=== PATIENT | female | born 1950 | race Hispanic/Latino ===

== ENCOUNTER 2020-10-17 06:35 | Day surgery (SDC) | payer MEDICARE, OTHER ==
[2020-10-17 07:28] LABS: Basophils # (Auto) 0.1 K/mm3 (0.0-0.1); Eosinophils # (Auto) 0.3 K/mm3 (0.0-0.4); Eosinophils % (Auto) 4.8 % (0.0-4.3); Hematocrit 41.3 % (30.3-42.9); Hemoglobin 13.8 gm/dl (10.1-14.3); Lymphocytes # (Auto) 1.6 K/mm3 (1.2-5.4); Lymphocytes % (Auto) 23.5 % (13.4-35.0); Mean Corpuscular HGB Conc 33 % (30-34); Mean Corpuscular Volume 86 fl (79-97); Monocytes # (Auto) 0.7 K/mm3 (0.0-0.8); Monocytes % (Auto) 10.3 % (0.0-7.3); Platelet Count 295 K/mm3 (140-440); Red Blood Count 4.79 M/mm3 (3.65-5.03); Red Cell Distribution Width 13.4 % (13.2-15.2)
[2020-10-17 07:41] LABS: BUN/Creatinine Ratio 14; Blood Urea Nitrogen 11 mg/dL (7-17); Calcium 10.6 mg/dL (8.4-10.2); Hemolysis Index 7
[2020-10-17 07:43] LABS: INR 0.89 (0.87-1.13)
[2020-10-17 07:44] LABS: Partial Thromboplastin Time 34.1 Sec. (24.2-36.6)
[2020-10-17] MEDS ORDERED: SODIUM CHLORIDE 0.9% 500 ML 500 ML IV SCH (08:00)
[2020-10-17] MEDS ORDERED: HEPARIN 10,000 UNITS/10 ML VIAL ONE (08:03)
[2020-10-17] MEDS ORDERED: HEPARIN/NS 5000 UNIT/500ML 1,000 ML IR ONE (08:03)
--- NOTE | 2020-10-17 08:37 | Short Stay Summary ---
Short Stay Documentation Date of service: 10/17/20 - History Principal diagnosis: Peripheral vascular disease with claudication to bilateral lower extremitie Past Medical History: diabetes, hypertension, PVD Social history: no significant social history - Allergies and Medications Current Medications: Allergies codeine Allergy (Verified 10/17/20 07:02) Itching Penicillins Allergy (Verified 10/17/20 07:01) Swelling Sulfa (Sulfonamide Antibiotics) Allergy (Verified 10/17/20 07:01) Swelling Home Medications Medication Instructions Recorded Confirmed Last Taken Type Ascorbic Acid/Ascorbate Sodium 1 tab PO DAILY 10/17/20 10/17/20 10/12/20 History [Vit C-Natasha Hips 500 mg Chew Tb] 1 tab Benazepril HCl [Lotensin] 20 mg PO DAILY 10/17/20 10/17/20 10/17/20 05:00 Histo ry Vit D3-Vit K/Berberine/Hops 1 tab PO DAILY 10/17/20 10/17/20 10/12/20 History [Ostera Tablet] 1 Tab Vitamin B Complex [B Complex] 1 tab PO DAILY 10/17/20 10/17/20 10/12/20 History 1 tab hydroCHLOROthiazide 12.5 mg PO DAILY 10/17/20 10/17/20 10/17/20 05:00 History [Hydrochlorothiazide] metFORMIN [Glucophage] 500 mg PO DAILY 10/17/20 10/17/20 10/15/20 History 500 mg Active Medications Sodium Chloride (Nacl 0.9% 500 Ml) 500 mls @ 50 mls/hr IV DIRECT VIDAL Stop: 10/17/20 20:00 Last Admin: 10/17/20 08:14 Dose: 50 mls/hr Documented by: Clindamycin HCl (Cleocin 900 Mg/50 Ml) 900 mg in 50 mls @ 100 mls/hr IV PREOP NR; Protocol - Physical exam General appearance: no acute distress Integumentary: no rash, no growths HEENT: Atraumatic Lungs: Normal air movement Breasts: deferred Heart: Regular rate Gastrointestinal: normal Female Genitourinary: deferred Rectal Exam: deferred Extremities: no ischemia, no No edema Neurological: Normal gait, Normal speech - Brief post op/procedure progress note Date of procedure: 10/17/20 Pre-op diagnosis: Peripheral vascular disease with claudication Post-op diagnosis: same Procedure: Ultrasound and fluoroscopic guided placement of bilateral common iliac artery stents Anesthesia: local Surgeon: BARBIE MANCUSO Estimated blood loss: minimal Pathology: none Condition: stable - Disposition Condition at discharge: Good Disposition: [id number] TO HOME OR SELFCARE Short Stay Discharge Plan Activity: advance as tolerated Weight Bearing Status: Weight Bear as Tolerated Diet: regular Wound: keep clean and dry, per your surgeon's advice (Keep pressure dressings on until tomorrow morning) Follow up with: TOÑO PULLIAM MD [Primary Care Provider] - 7 Days
[2020-10-17] MEDS: fentaNYL 100 MCG/2 ML INJ ONE ×4 (08:59→10:05)
[2020-10-17] MEDS: MIDAZOLAM 2 MG/2 ML INJ ONE ×3 (09:00→09:36)
[2020-10-17] MEDS: LIDOCAINE (2%) 20 MG/1 ML VIAL 20 ML MDV INFILTRATI ONE ×4 (09:05→09:14)
--- NOTE | 2020-10-17 10:48 | Operative Report ---
Operative Report Operative Report: Exam: Ultrasound and fluoroscopic guided placement of kissing bilateral common iliac artery stents with extension into the aorta, intravascular ultrasound Clinical indication: Patient with a history of peripheral vascular disease with claudication and distal abdominal aorta stenosis as well as bilateral common iliac artery stenosis Date: 10/17/2020 Procedure: Following an explanation of the risks, benefits and alternatives; written informed consent was obtained. The patient was brought to the [facility] suite and placed in supine position on the examination table. Initial ultrasound evaluation of her bilateral groins demonstrated patent although diminutive common femoral arteries bilaterally. The patient's bilateral groins were prepped and draped in the usual sterile fashion. 1% lidocaine was used for anesthesia. Under ultrasound guidance, the right common femoral artery was cannulated with a 7 cm 21-gauge needle. A 0.018 guidewire was advanced centrally under fluoroscopy. The needle was removed and a microsheath placed. The 0.018 guidewire was exchanged for a 0.035 guidewire and the micro sheath exchanged for a 5 Pakistani vascular sheath. Access to the left common femoral artery was obtained in a similar fashion and an additional 5 Pakistani sheath placed in the left common femoral artery. An Omni Flush catheter was advanced over the guidewire through the right sheath. Together the catheter and guidewire were advanced to the distal abdominal aorta. Angiography was performed. This demonstrates mild aortic ectasia of the distal abdominal aorta just proximal to a significant stenosis in the distal abdominal aorta just proximal to the bifurcation. The origin of the inferior mesenteric artery as well as lumbar arteries was identified. There is bilateral common iliac artery stenosis. The origins of the internal iliac arteries were also identified. From the right sheath, the 5 Pakistani sheath was removed and an 8 Pakistani intravascular ultrasound fiber advanced over the guidewire to the distal abdominal aorta. Intravascular ultrasound was then performed in the abdominal aorta, right common iliac artery, right external iliac artery and right common femoral artery. This demonstrates a 70% stenosis within the distal abdominal aorta and a 70 to 80% stenosis within the mid common iliac artery on the right. The external iliac artery and common femoral artery are diminutive. Over the guidewires, the sheaths were upsized. On the left, the sheath was upsized to an 7 Pakistani sheath on the right, the sheath was upsized to an 8 Pakistani sheath. Additional angiography was performed following placement of the Omni Flush catheter through the left sheath for procedural mapping. An 8 mm x 59 mm Saffell VBX stent was advanced through the left sheath, an 8 mm x 79 mm Saffell VBX stent was advanced through the right sheath. The stents were deployed in kissing fashion from the distal abdominal aorta into bilateral common iliac arteries treating both the distal abdominal aortic lesion and both common iliac artery lesions. Within the proximal aspect of the stents, addit ional seating was performed using kissing 10 mm x 40 mm balloons insufflated to 3 rick for 30 seconds. The Omni Flush catheter was then advanced over the guidewire through the left sheath and completion angiography performed. This demonstrates no evidence of endoleak's. There were reduction of the stenoses in the distal abdominal aorta and bilateral common iliac artery with brisk flow from the distal abdominal aorta to the common femoral arteries bilaterally. The catheters, guidewires and sheaths were then removed and hemostasis achieved using manual compression. Sterile dressings were applied and then compression dressings were applied. The patient tolerated the procedure well. There were no immediate postprocedure complications. Conscious sedation was performed under the guidance of radiologic nursing. Continuous cardiopulmonary monitoring was utilized. Impression: 1) Angiography of the distal abdominal aorta, bilateral common iliac arteries, bilateral external iliac arteries and bilateral common femoral arteries demonstrating high-grade stenosis within the distal abdominal aorta as well as bilateral common iliac arteries. There is diminutive external and common femoral arteries bilaterally. 2) Intravascular ultrasound of the distal abdominal aorta, right common iliac artery, right external iliac artery and right common femoral artery. This demonstrates 70% stenosis within the distal abdominal aorta and 70 to 80% stenosis within the mid right common iliac artery. 3) Treatment of the distal abdominal aortic lesion as well as bilateral common iliac artery lesions using kissing 8 mm Saffell VBX stents. On the left, a 79 mm stent was placed, on the right, a 59 mm stent was placed. Post intervention imaging demonstrated reduction of all 3 stenoses with brisk flow from the distal aorta into the visualized portion of the common femoral arteries.
[2020-10-17] MEDS ORDERED: oxyCODONE /ACETAMINOPHEN 5-325MG TAB PO PRN (12:06)
[2020-10-17] MEDS ORDERED: CLOPIDOGREL 75 MG TAB PO ONE (13:06)
[2020-10-17] MEDS ORDERED: CLOPIDOGREL 75 MG TAB ONE (13:31)
[2020-10-17 14:37] VITALS: BP 118/52
== END 2020-10-17 15:05 | disposition home or self-care (01) ==
LOC: CATHLABREC 06:35
PROVIDERS: ATTEND Radiology Diagnostic Radiology
DX: I70.213 Atherosclerosis of native arteries of extremities with intermittent claudication, bilateral legs (principal); E11.51 Type 2 diabetes mellitus with diabetic peripheral angiopathy without gangrene; I87.1 Compression of vein; M19.90 Unspecified osteoarthritis, unspecified site; I10 Essential (primary) hypertension; Z88.2 Allergy status to sulfonamides; Z88.5 Allergy status to narcotic agent; Z88.0 Allergy status to penicillin; Z79.899 Other long term (current) drug therapy; Z87.891 Personal history of nicotine dependence; Z98.49 Cataract extraction status, unspecified eye; Z90.710 Acquired absence of both cervix and uterus; Z98.890 Other specified postprocedural states; Z80.8 Family history of malignant neoplasm of other organs or systems; Z83.3 Family history of diabetes mellitus; Z82.49 Family history of ischemic heart disease and other diseases of the circulatory system
CPT/HCPCS: 36415; 37221; 37252; 76937; 80048; 82962; 85025; 85610; 85730; 99156; 99157; C1725; C1753; C1769; C1874; C1887; C1894; J1644; J2250; J3010; J7040; Q9967